=== PATIENT | female | born 1935 | race African-American/Black ===

== ENCOUNTER 2016-10-14 08:46 | Outpatient (CLI) | payer MEDICARE, BC ==
[~2016-10-14] VITALS: Ht 160 cm; Wt 59.1 kg
[2016-10-14] VITALS (7 sets, daily range): BP systolic 143–164; BP diastolic 59–70; Ht 160 cm; Wt 59.1 kg
[2016-10-14] MEDS ORDERED: SYNTHROID112 MCG PO (09:44)
[2016-10-14] MEDS ORDERED: DILANTIN100 MG PO (09:44)
[2016-10-14] MEDS ORDERED: HYDRALAZINE HCL50 MG PO (09:44)
[2016-10-14] MEDS ORDERED: LANOXIN125 MCG PO (09:45)
[2016-10-14] MEDS ORDERED: AVALIDE 300-12.1 TA1 PO (09:45)
[2016-10-14 09:49] LABS: BASOPHILS 0.2 % (0-2); EOSINOPHILS 1.3 % (0-7); HEMATOCRIT 41.1 % (36.0-48.0); HEMOGLOBIN 14.4 g/dL (12-16); IMMATURE GRANULOCYTES 0.2 % (0-5); MCH 34.1 pg (26.0-34.0); MCV 97.4 fL (80.0-100.0); MEAN PLATELET VOLUME 9.3 fL (7.4-10.4); MONOCYTES 7.8 % (2-11); NEUTROPHILS 73.5 % (40-80); PLATELET COUNT 198 10x3/uL (130-400); RBC 4.22 10x6/uL (4.00-5.40); RDW 12.7 % (11.5-14.5); WBC 6.1 10x3/uL (4.8-10.8)
[2016-10-14 10:00] LABS: APTT 26.4 SECONDS (22.8-39.4); INR 1.04 (0.85-1.17); PROTIME 13.4 SECONDS (11.6-15.0)
[2016-10-14 10:04] LABS: CALC OSMOLALITY 285 mosm/kg (275-300); CALCIUM 8.9 mg/dL (8.5-10.1); CARBON DIOXIDE 28.5 mmol/L (21.0-32.0); CHLORIDE - SERUM 106 mmol/L (98-107); CREATININE - SERUM 0.6 mg/dL (0.6-1.3); GLUCOSE 109 mg/dL (74-106); POTASSIUM - SERUM 4.2 mmol/L (3.5-5.1); SODIUM 143 mmol/L (136-145); UREA NITROGEN 12 mg/dL (7-18); eGFR NON AFRICAN AMERICAN > 90 mL/min (90-120)
[2016-10-14 15:27] LABS: HEMATOCRIT 40.9 % (36.0-48.0); HEMOGLOBIN 14.2 g/dL (12-16)
--- NOTE | 2016-10-14 18:28 | NUR ---
PATIENT GIVEN HER DILANTIN AND AN ULTRACET PER REQUEST. SHE STATE SHTAT THE REPORTED PAIN HAS SUBSIDED SIGNIFICANTLY SINCE URINATING. SHE DENIES HAVING HEMATURIA.
--- NOTE | 2016-10-14 19:39 | NUR ---
RECEIVED REPORT, WILL ASSUME CARE OF PT, PT ASKING FOR WATER, WILL GIVE, BED IS LOW, SRX2, CALL LIGHT IN REACH, WILL CONTINUE PLAN OF CARE
[2016-10-15] VITALS: BP 138/52
--- NOTE | 2016-10-15 04:23 | NUR ---
ASSESSMENT COMPLETE, SEE FLOWSHEET, BED IS LOW, SRX2, CALL LIGHT IN REACH, WILL CONTINUE TO MONITOR
[2016-10-15 05:14] LABS: HEMATOCRIT 38.1 % (36.0-48.0); HEMOGLOBIN 13.2 g/dL (12-16)
[2016-10-15 08:20] VITALS: BP 156/65
--- NOTE | 2016-10-15 08:45 | NUR ---
PATIENT DENIES PAIN AND HEMATURIA.
--- NOTE | 2016-10-15 09:36 | NUR ---
DISCUSSED DISCHARGE INSTRUCTIONS. SHE WILL BE FOLLOWING UP WITH DR. DEL CASTILLO IN [place], ADVISED HER TO CALL HIS OFFICE TUESDAY FOR A FOLLOW UP APPT.
--- NOTE | 2016-10-15 09:58 | NUR ---
PATIENT OFF THE UNIT VIA WHEELCHAIR.
== END 2016-10-15 10:01 | disposition home or self-care (01) ==
LOC: D.OPS 08:46 → D.M2 12:36 → D.OPS 13:00 → D.RAD 13:00 → D.OPS 10-15 10:01
PROVIDERS: Specialist
DX: C64.1 Malignant neoplasm of right kidney, except renal pelvis (principal); Z79.899 Other long term (current) drug therapy; Z88.0 Allergy status to penicillin; Z88.5 Allergy status to narcotic agent; Z88.2 Allergy status to sulfonamides; Z01.812 Encounter for preprocedural laboratory examination